=== PATIENT | male | born 1990 | race African-American/Black ===

== ENCOUNTER 2019-01-04 10:02 | Emergency (ER) | payer SELFPAY | END 2019-01-04 13:04 | disposition home or self-care (01) | LOC: FTE 10:02 | DX: S32.2XXA Fracture of coccyx, initial encounter for closed fracture (principal); J45.909 Unspecified asthma, uncomplicated; V00.831A Fall from motorized mobility scooter, initial encounter | CPT/HCPCS: 72220; 99283-25 ==